=== PATIENT | male | born 1940 ===

== ENCOUNTER 2018-01-24 13:13 | Emergency (ER) ==
--- OUTSIDE RECORDS SUMMARY | 2018-01-24 13:17 | XMS REPORT | Summary of Care ---
Author Author Omar Reddy, Joanna Organization Unknown Address Unknown Phone Unavailable Care Team Providers Care Grinding Wheel Operator Name Role Phone LORAINE PROCTOR M.D. 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 Starting 03/14/2009 and ending 09/08/2009. for Diagnosis Atrial Fib. Quantity: 21 LORAINE PROCTOR M.D. * Start : 13-Mar-2009 Active Metoprolol Succinate ER 50 MG Oral Tablet Extended Release 24 Hour TAKE 1 TABLET BY MOUTH DAILY * Quantity: 90 Refills: 2 LORAINE PROCTOR M.D. * Start : 02-Aug-2017 Active MetFORMIN HCl - 500 MG Oral Tablet TAKE 1 TABLET BY MOUTH TWICE DAILY * Quantity: 180 Refills: 1 LORAINE PROCTOR M.D. * Start : 06-Jan-2013 Active Warfarin Sodium 5 MG Oral Tablet TAKE 1 TABLET EVERY DAY * Quantity: 90 Refills: 3 LORAINE PROCTOR M.D. * Start : 03-May-2013 Active Lisinopril-Hydrochlorothiazide 20-12.5 MG Oral Tablet TAKE ONE TABLET BY MOUTH TWICE DAILY * Quantity: 180 Refills: 3 LORAINE PROCTOR M.D. * Start : 29-Mar-2015 Active Aspirin Low Dose 81 MG TABS TAKE 1 TABLET DAILY. * Refills: 0 Active Simvastatin 40 MG Oral Tablet TAKE 1 TABLET AT BEDTIME. * Quantity: 30 Refills: 5 LORAINE PROCTOR M.D. * Start : 06-Dec-2015 Active Allergies and Adverse Reactions Name Dates Details No Known Drug Allergies (Allergy) Status: Active Procedures Procedure Dates Details Procedures not documented Immunization Name Dates Details Immunizations not documented Social History Name Dates Details - Status: Name Dates Details Smoker. current status unknown Vital Signs Date Test Result Details No Known Vitals to report Results Date Description Value Details Results not documented Plan of Care Name Dates Details Planned Observations Planned Goals not documented Planned Encounters Appointment; LORAINE PROCTOR M.D. On: 03-Dec-2017 10:20 Interventions Provided Medication Changes* Metoprolol Succinate ER 50 MG Oral Tablet Extended Release 24 Hour - Renew Instructions Name Dates Details Instructions not documented Encounters Appointment; LORAINE PROCTOR M.D. Encounter Diagnosis: Problem not documented On: 01-Nov-2015 11:00 Appointment; LORAINE PROCTOR M.D. Encounter Diagnosis: Problem not documented On: 22-Nov-2015 11:20 Appointment; DELVIN GLEZ Encounter Diagnosis: Problem not documented On: 28-Apr-2016 9:00 Appointment; FIDENCIO GLEZ Encounter Diagnosis: Problem not documented On: 01-May-2016 9:30 Appointment; LORAINE PROCTOR M.D. Encounter Diagnosis: Problem not documented On: 01-May-2016 12:00 Appointment; LORAINE PROCTOR M.D. Encounter Diagnosis: Problem not documented On: 07-May-2017 10:20
== END 2018-01-24 13:34 | disposition short-term general hospital (02) ==
LOC: ER 13:13
DX: S09.90XA Unspecified injury of head, initial encounter (principal)